=== PATIENT | male | born 1945 | race Caucasian/White ===

== ENCOUNTER 2020-09-03 17:15 | Observation (INO) ==
[2020-09-03] MEDS ORDERED: Isovue-370 500 ML BOTTLE IVP ONE (17:58)
[2020-09-03] MEDS ORDERED: Ondansetron 4 MG/2 ML VIAL IVP PRN (20:01)
[2020-09-03] MEDS ORDERED: Naloxone 0.4 MG/ML INJ IVP PRN (20:01)
[2020-09-03] MEDS ORDERED: Perflutren Lipid Microsphere 1.3 ML in 0.9 % Sodium Chloride 8.7 ML IVP PRN (20:10)
[2020-09-03] MEDS: BuPROPion SR (12 HR) 100 MG TABLET PO SCH (21:56)
[2020-09-04] MEDS ORDERED: *HR* Dextrose 50 % in Water (Vial) 50 ML VIAL IVP PRN (03:58)
[2020-09-04] MEDS ORDERED: D5% in Water 1,000 ML IVC PRN (03:58)
[2020-09-04] MEDS ORDERED: Dextrose Gel 15 GM/37.5 ML TUBE PO PRN ×2 (03:58)
[2020-09-04] MEDS ORDERED: Ipratropium/Albuterol Neb 3 ML IH PRN (03:58)
[2020-09-04 07:54] LABS: Basophils # 0.1 K/mcL (0.0-0.2); Basophils % 0.7 %; Eosinophils # 0.2 K/mcL (0.0-0.6); Eosinophils % 2.5 %; Hematocrit 40.1 % (37.5-50.1); Hemoglobin 12.8 g/dL (12.9-16.9); Immature Granulocytes % 0.3 % (0-4); Lymphocytes # 2.1 K/mcL (0.6-4.6); Lymphocytes % 28.6 %; Mean Corpuscular HGB Conc 31.9 g/dL (31.6-35.5); Mean Corpuscular Hemoglobin 28.1 pg (28.0-33.3); Mean Corpuscular Volume 87.9 fL (83.0-100.0); Monocytes # 0.5 K/mcL (0.0-1.3); Monocytes % 6.4 %; Neutrophils # 4.5 K/mcL (1.6-8.9); Platelet Count 152 K/mcL (140-400); Red Blood Count 4.56 M/mcL (4.19-5.50); Red Cell Distribution Width 13.5 % (11.5-14.5); Segmented Neutrophils % 61.5 %; White Blood Count 7.2 K/mcL (4.3-11.1)
[2020-09-04 07:55] LABS: INR 1.4
[2020-09-04 08:15] LABS: Alanine Aminotransferase 13 Units/L (7-52); Albumin/Globulin Ratio 1.2 (1.1-2.2); Alkaline Phosphatase 65 Units/L (34-104); Aspartate Amino Transferase 15 Units/L (13-39); BUN/Creatinine Ratio 14 (6-26); Bilirubin,Total 0.7 mg/dL (0.3-1.0); Blood Urea Nitrogen 14 mg/dL (8-23); Calcium 9.4 mg/dL (8.6-10.3); Carbon Dioxide 23 mEq/L (23-29); Chloride 104 mEq/L (98-107); Chol/HDL Ratio 2.9 (0-4.9); Cholesterol 122 mg/dL (< 200); Globulin 3.4 g/dL (2.4-3.5); Glucose 144 mg/dL (70-105); HDL Cholesterol 42 mg/dL (40-59); LDL Cholesterol,Calculated 62 mg/dL (< 100); Magnesium 1.9 mg/dL (1.6-2.6); Osmolality,Calculated 289 (280-300); Phosphorous 4.2 mg/dL (2.7-4.5); Potassium 4.3 mEq/L (3.5-5.1); Sodium 138 mEq/L (136-145); Total Protein 7.4 g/dL (6.4-8.9); Triglycerides 90 mg/dL (< 150); eGFR For African Americans > 60 (> 60); eGFR For Non-African Americans > 60 (> 60)
[2020-09-04] MEDS: BuPROPion SR (12 HR) 100 MG TABLET PO SCH ×2 (08:23→20:30)
[2020-09-04] MEDS: Insulin LISPRO 300 UNITS/3 ML VIAL SUBQ SCH ×4 (08:23→20:24)
[2020-09-04] MEDS: Isosorbide MONOnitrate (24 HR) 30 MG TAB.ER.24H PO SCH (08:23)
[2020-09-04] MEDS ORDERED: Apixaban 5 MG TABLET PO SCH (09:00)
[2020-09-04] MEDS: Furosemide 20 MG/2 ML VIAL IVP SCH ×2 (11:06→17:02)
[2020-09-04] MEDS: Apixaban 5 MG TABLET PO SCH (20:30)
[2020-09-04] MEDS ORDERED: Insulin DETEMIR 100 UNIT/ML X5UNITS SUBQ SCH (21:00)
[2020-09-05] MEDS: Apixaban 5 MG TABLET PO SCH ×2 (07:26→21:24)
[2020-09-05] MEDS: Insulin LISPRO 300 UNITS/3 ML VIAL SUBQ SCH ×4 (07:27→21:22)
[2020-09-05] MEDS: Isosorbide MONOnitrate (24 HR) 30 MG TAB.ER.24H PO SCH (07:27)
[2020-09-05] MEDS: Furosemide 20 MG/2 ML VIAL IVP SCH ×2 (07:27→17:03)
[2020-09-05] MEDS: BuPROPion SR (12 HR) 100 MG TABLET PO SCH ×2 (07:27→21:24)
[2020-09-05 07:40] LABS: BUN/Creatinine Ratio 16 (6-26); Blood Urea Nitrogen 20 mg/dL (8-23); Calcium 9.1 mg/dL (8.6-10.3); Carbon Dioxide 29 mEq/L (23-29); Chloride 100 mEq/L (98-107); Glucose 130 mg/dL (70-105); Magnesium 1.9 mg/dL (1.6-2.6); Osmolality,Calculated 288 (280-300); Potassium 4.1 mEq/L (3.5-5.1); Sodium 137 mEq/L (136-145); eGFR For African Americans > 60 (> 60); eGFR For Non-African Americans 55 (> 60)
[2020-09-05] MEDS ORDERED: Acetaminophen 325 MG TABLET PO PRN (10:58)
[2020-09-05] MEDS: carvediloL 6.25 MG TABLET PO SCH (17:02)
[2020-09-06] MEDS: Insulin LISPRO 300 UNITS/3 ML VIAL SUBQ SCH ×2 (07:47→12:04)
[2020-09-06] MEDS: Furosemide 20 MG/2 ML VIAL IVP SCH (08:22)
[2020-09-06] MEDS: carvediloL 6.25 MG TABLET PO SCH (08:23)
[2020-09-06] MEDS: Apixaban 5 MG TABLET PO SCH (08:23)
[2020-09-06] MEDS: BuPROPion SR (12 HR) 100 MG TABLET PO SCH (08:23)
[2020-09-06] MEDS: Isosorbide MONOnitrate (24 HR) 30 MG TAB.ER.24H PO SCH (08:23)
[2020-09-06 08:46] LABS: Estimated Average Glucose 160 mg/dl; Hemoglobin A1C 7.2 %
[2020-09-06 11:07] VITALS: BP 135/85
== END 2020-09-06 14:36 | disposition home or self-care (01) ==
LOC: EMEROOARM 17:15 → 2ANU 17:15 → SUATTDRO 20:19 → 2ANU 20:46
PROVIDERS: ADMIT Family Medicine; ATTEND Internal Medicine